=== PATIENT | female | born 1930 | race Caucasian/White ===

== ENCOUNTER 2016-09-01 08:44 | Emergency (ER) | payer MEDICARE, OTHER ==
[~2016-09-01] VITALS: Ht 157.5 cm; Wt 59.1 kg
[~2016-09-01 08:44] MED LIST: ASPI-628 PO; ATEN50TA PO
[2016-09-01 08:46] VITALS: BP 168/76; PULSE 84; RESP 18; O2SAT 98
--- NOTE | 2016-09-01 09:09 | ED.REPORT ---
HPI-Extremity Problem Upper Date of Service Sep 01, 2016 ED Provider: Walter Ferro MD 86 year old female with a history of right wrist fracture presents to the ER accompanied by her with right wrist pain status post mechanical ground level fall in her kitchen last night. She speculates that she landed on her outstretched hand. Pain is exacerbated with movement of her hand and forearm, and relieved by remaining still. She denies head or neck trauma, and any further injuries secondary to the fall. Nursing Notes Stated Complaint: RT ARM/WRIST PAIN Chief Complaint: Extremity Trauma Nursing Notes Reviewed: Yes Allergies: Coded Allergies: Penicillins (Verified Allergy, Severe, 12/16/15) Scheduled Aspirin (Aspir 81) 81 Mg Tablet.dr 81 MG PO DAILY Atenolol (Atenolol) 50 Mg Tablet 50 MG PO HS Scheduled PRN Hydrocodone-Acetaminophen 5-325 mg (Hydrocodone-Acetaminophen 5-325 mg) 1 Each Tablet 1 TABLET PO Q4H PRN PRN For Pain General Time Seen by MD: 09:08 Chief Complaint Wrist injury right Hx Obtained From: Patient Arrived By: Walk-in Onset Occurred: Yesterday Symptom Duration: Since onset Caused by: Accidental, Fall on ground Context: Occurred at: Home injury Location: : Wrist right Quality: Painful Severity: Current: Moderate Severity: Maximum: Severe Pertinent Negative: Pt denies other symptoms Exacerbated by: Range of motion, Movement Relieved by: Immobilization Similar Sx Previous: Yes Past Medical History Past Medical History Reports: Hypertension Past Surgical History Multiple eye surgeries Reports: Hysterectomy Smoking History Never Smoker Social History Alcohol Use: "Social" Drug Use: Denies drug use Other Social History: Ambulatory Status Independent Review of Systems Musculoskeletal: Reports: Extremity pain (Right Wrist), Denies: Back pain, Lumbar pain, Neck pain, Thoracic pain Neurologic: Denies: Headache, Problem walking, Syncope Complete sys rev & neg: except as marked. Physical Exam Initial Vital Signs Vital Signs (First) Date Time Temp Pulse Resp B/P Pulse Ox O2 Delivery O2 Flow Rate FiO2 09/01/16 08:46 36.6 84 18 168/76 98 09/01/16 11:13 Room Air Initial VS: Reviewed General/Constitutional: Well-developed, Well-nourished ENT: Mucous membranes moist, Conjunctiva normal, No scleral icterus Neck: Supple, Non-tender, Full range of motion Respiratory: Breath sounds normal, Clear to auscultation, No respiratory distress Cardiovascular: Regular rate & rhythm, Heart sounds normal, Intact distal pulses Lower Extremities: Vascular intact, Neuro intact, No swelling, No tenderness Skin: Warm, Dry, No cyanosis Neurologic: Alert, Oriented, Nonfocal Psychiatric: Mood/affect normal, Behavior normal, Normal thought content Wrist / Hand: No deformity, Neurologic intact, Vascular intact Right Wrist: Positive: Deformity present... (Palpable), Swelling present..., Tenderness present... Tenderness and swelling about the right distal radius. Able to flex and extend fingers on the right hand. Head / Eyes: Atraumatic (Scalp), Normocephalic Interpretation & Diagnostics X-Ray Interpretation Xray Interpretation: IMPRESSION: 1. Fractured distal radial metaphysis with dorsal angulation deformity. 2. Osteoarthritis first carpometacarpal joint. Dictated by: Jose Quigley M.D. on 09/01/2016 at 9:23 Approved by: Jose Quigley M.D. on 09/01/2016 at 9:25 X-Ray Ordered: Radius ulna right Interpretation / Wet Read by: Interpret - Radiologist Procedures Proced Mod Sedation/Analgesia Time: 10:41 Procedure Performed by: ED physician Sedation Time: 10 - 15 min Consent / Setup: Informed consent provided, Consent from patient, Time-out performed, Hand hygiene observed, Stand sterile technique, Patient sitting up Indication: Fracture reduction Preparation: hall monitor applied, Pulse oximeter applied, Constant attendance, IV access established, Eval last meal time, Supplemental oxygen, Procedure explained, Suction available, End tidal CO2 mon applied VS Prior to Procedure: All vital signs normal, O2 saturation normal, Blood pressure normal, Heart Rate normal, Respiratory rate normal Airway Exam: Normal facial anatomy Neuro Exam: Alert Sedation: Sedation: Propofol (40mg) ASA Classification: 1 normal healthy patient Response During Procedure: Handled secretions adeq, Maintained airway well, Oxygenation stable, Sedation appropriate, Vital signs stable Complications During/After: None Reversal: None required Mental Status After Procedure: Alert, Oriented X3, Response to verbal stim Post-Procedure: Alert prior to discharge, Ambulatory with assist Attestation: I performed procedure, I performed sedation Splint Application - Fx Mgt Splint Application- Fx Mgt: Reduced right distal radius fracture. Dorsally angulated. C-arm used. Good reduction achieved. Post-reduction films improved. Time: 10:41 Procedure Performed by: ED physician, Electronics Department Manager Precise Anatomic Location: Right Wrist Type of Immobilization: Sugar tong Definitive Fracture Care: Splint Post-Procedure / Complications: Cap refill normal, Post splint vascular nl, Post splint neuro nl, Condition improved, Tolerated procedure well, Patient stable Re-Eval/Medical Decision Med Decision/Clinical Course In summary, the patient is an 86-year-old female who presents with right wrist pain and swelling after a ground-level fall on outstretched right hand. Plain films demonstrate dorsally age-related wrist fracture. The patient is neurovascular intact distal to the injury. She has no other associated injuries or head trauma. I proceeded with procedural sedation and fracture reduction/splinting using C-arm as documented above. The patient tolerated the procedural sedation well and was maintained on continuous cardiac monitoring, end-tidal CO2 and pulse oximetry at all times. She had no apnea or desaturation. She recovered well from procedural sedation. All appropriate consent forms were obtained prior to the procedure. Good alignment of her fracture was achieved and splint was placed. Alignment was confirmed by radiography. She was provided with follow-up and return precautions and discharged in good condition. Neurovascular examination after splint patient was reassuring. Follow-up and return precautions were reviewed in detail and she was discharged in good condition. She will follow-up with orthopedic surgery this week or early next week. Source of Hx: Old records Re-Evaluation/Progress #1: Time of Eval: 09:14 Re-Evaluation/Progress Note: Discussed radiology wet read and updated patient on the plan of care. Re-Evaluation/Progress #2: Time of Eval: 10:14 Re-Evaluation/Progress Note: Discussed x-ray results and plan for conscious sedation and fracture reduction. Re-Evaluation/Progress #3: Time of Eval: 10:49 Re-Evaluation/Progress Note: Discussed plan to discharge. Patient is amenable to the plan. Return precautions given. All other questions addressed. Counseled Regarding: Diagnosis, Need for follow-up, When/why to return to ED Discharge & Departure Impression: Primary Impression: Fall from ground level Additional Impression: Distal radius fracture, right Encounter type: initial encounter Fracture type: closed Fracture morphology : Colles' Qualified Code: S52.531A - Colles' fracture of right radius, initial encounter for closed fracture Disposition: Home Discharge Condition All VS Reviewed: Yes Condition: Stable Patient Instructions: Wrist Fracture in Adults (DC) Additional Instructions: You were seen today because you have a right distal radius fracture. We reduced the fracture and placed a splint. You should remain in the splint/ sling at all times. Return to the emergency room immediately if you develop increasing pain, swelling, discoloration of your fingertips, numbness or tingling. You may take [place] as prescribed for pain. Please call later today or first thing tomorrow to arrange for a follow-up with the orthopedic surgeons. They may perform further management of her fracture and placed a cast. Narcotic Pain Medicine You have been prescribed a narcotic for pain relief. These drugs are usually combined with acetaminophen (Tylenol#3, Percocet, Darvocet, Anexsia, Vicodin) or aspirin (Empirin#3, Percodan, Synalogs-DC) for increased effect. Narcotics act on the central nervous system to reduce pain; they also impair mental alertness and physical abilities. We advise you not to drink alcohol, drive a car, or operate dangerous equipment when you are taking theses drugs. You can lessen stomach irritation from your medicine by taking it with meals or a full glass of water. Common side effects of narcotics are: Nausea and vomiting, heartburn, consitpation, dizziness, sleepiness, and mood changes. If you have bothersome side effects or symptoms of an allergic reaction (itching, hives, rash), stop taking your medicine and call your doctor or the emergency room right away. Please keep your narcotic medicine well out of the reach of children. Referrals: Roberto Tucker MD (PCP) Ayo Littlejohn MD Attestation Portions of this note were transcribed by Devon Eng. I, Dr. Ferro, personally performed the history, physical exam and medical decision-making; I reviewed and confirmed the accuracy of the information in the transcribed note. Signed by: Sal Hunt, 09/01/2016 and 10:49 copies to: Roberto Tucker MD; Ayo Littlejohn MD, Beck O MD Sep 01, 2016 09:09 DEVON ENG Sep 01, 2016 09:15
--- NOTE | 2016-09-01 09:26 | DRSVH ---
PROCEDURE: X-RAY RIGHT WRIST COMPLETE, MINIMUM THREE VIEWS ([id number]) INDICATIONS: fell/swelling TECHNIQUE: 4 views of the wrist were acquired. COMPARISON: None. FINDINGS: Bones: Fracture through the distal radial metaphysis shows mild dorsal angulation. The distal wall ap pears intact. Carpal bones appear intact, degenerative changes at the basilar joint of thumb noted. Scaphoid view: No scaphoid fracture seen. Soft tissues: No suspicious soft tissue calcifications. IMPRESSION: 1. Fractured distal radial metaphysis with dorsal angulation deformity. 2. Osteoarthritis first carpometacarpal joint. Dictated by: Jose Quigley M.D. on 09/01/2016 at 9:23 Approved by: Jose Quigley M.D. on 09/01/2016 at 9:25
[2016-09-01] MEDS ORDERED: Propofol 10 mg/mL 20 mL Inj IVPUSH ONE (09:40)
--- NOTE | 2016-09-01 10:20 | NUR ---
Assisted with sedation. RA 95, HR 71, ETCO2 36. No complications noted.
[2016-09-01] MEDS ORDERED: HYDR-4003 PO (10:46)
[2016-09-01 11:13] VITALS: BP 161/68; PULSE 78; RESP 17; O2SAT 96
--- NOTE | 2016-09-01 11:17 | DRSVH ---
PROCEDURE: X-RAY RIGHT WRIST, TWO VIEWS ([id number]) INDICATIONS: POST REDUCTION RIGHT WRIST TECHNIQUE: 2 views of the wrist were acquired. COMPARISON: None. FINDINGS: Bones: AP and lateral views of the wrist obtained post closed reduction shows correction of the dorsa l angulation deformity and holiness of length of the radius. Fracture line through the distal radi al metaphysis is reidentified. Scaphoid view: Not required Soft tissues: No suspicious soft tissue calcifications. IMPRESSION: Improved alignment distal radial metaphyseal fracture post closed reduction. Dictated by: Jose Quigley M.D. on 09/01/2016 at 11:14 Approved by: Jose Quigley M.D. on 09/01/2016 at 11:16
[2016-09-04] MEDS ORDERED: NAPR220C11 PO (13:14)
== END 2016-09-01 10:47 | disposition home or self-care (01) ==
LOC: SED 08:44
DX: S52.531A Colles' fracture of right radius, initial encounter for closed fracture (principal); W18.30XA Fall on same level, unspecified, initial encounter; Y93.89 Activity, other specified; Y92.000 Kitchen of unspecified non-institutional (private) residence as the place of occurrence of the external cause; Y99.8 Other external cause status; I10 Essential (primary) hypertension; Z79.82 Long term (current) use of aspirin; Z88.0 Allergy status to penicillin

== ENCOUNTER 2016-09-07 12:19 | Day surgery (SDC) | payer MEDICARE, OTHER ==
[2016-09-07] VITALS (11 sets, daily range): BP systolic 139–177; BP diastolic 60–82; PULSE 66–87; RESP 14–18; O2SAT 91–99
[~2016-09-07] VITALS: Ht 157.5 cm; Wt 60.6 kg
--- NOTE | 2016-09-07 06:39 | PCM.HPANE ---
Patient Data Surgeon Admitting Provider: Attending Provider:Didier Garcia DO Primary Care Physician:Roberto Tucker MD Other Provider:Jarrett Whitley Anesthesia Reason for Visit Right Intra-Articular Distal Radius Fracture Ht/WT & BMI Height (Feet): 5 Height (Inches): 2 Weight (Kilograms): 62.5 Body Mass Index 25.00 Allergies Coded Allergies: Penicillins (Verified Allergy, Severe, HIVES, 09/07/16) atorvastatin (Verified Adverse Reaction, Severe, MYALGIAS, 09/07/16) fenofibrate (Verified Adverse Reaction, Severe, GI PROBLEMS, 09/07/16) Past Anesthesia History Anesthesia History: Denies:: Anesthesia Reactions, Malignant Hyperthermia Diabetes History Hx Diabetes?: No (HX OF IFG) MRSA MRSA: No Medications Blood Thinner: Aspirin Home Meds Incl Beta Lorenzo: Yes (ATENOLOL) Reported Medications Aspirin 81 Mg [id number] Mg PO DAILY Ref 0 09/07/16 Naproxen Sodium (Aleve)220 Mg [id number] Mg PO DAILY PRN PRN 09/04/16 Atenolol 50 Mg [id number] Mg PO HS #30 TABLET Ref 0 11/30/14 Discontinued Reported Medications Aspirin (Aspir 81)81 Mg Tablet.dr81 Mg PO DAILY Ref 0 11/30/14 Discontinued Scripts Hydrocodone-Acetaminophen 5-325 mg 1 Each Tablet1 Tablet PO Q4H PRN For Pain # 20 TABLET Prov:Walter Ferro MD 09/01/16 History History of ENT Problems?: Yes HEENT History: Positive for:: Cataracts (S/P B/L EXTRACTIONS) Denies:: Glaucoma (S/P MULT CORRECTIVE EYE SURGERIES-CHRONIC CONJUGATE GAZE) Hx of Heart Problems?: Yes Cardiovascular History: Positive for:: Heart Murmur (GR I/ JESSEE HEARD @ [facility] 01/2016 EF 65-70%) Hypertension (HYPERLIPIDEMIA) Valvular 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, MOD AR,AORTIC SCLEROSIS) Denies:: Cardiac Surgery Chest Pain Congestive Heart Failure Edema Irregular Heartbeat (PT REPORTS PALPITATIONS 01/2016-[facility] WNL) Pacemaker Thrombophlebitis Hx of Respiratory Problem?: No Respiratory History: Denies:: Use of C-PAP Machine Hx Neurologic Problems?: Yes Neurological History: Positive for:: Dizziness (LIGHTHEADEDNESS,DIZZINESS W/ FALLS) Headaches Hx of GI Problems?: Yes Gastrointestinal History: Positive for:: Rectal Bleeding (HX HEMORRHOIDS) Denies:: Diverticulitis (DIVERTICULOSIS) Hx of Problems?: Yes Genitourinary History: Positive for:: Urinary Tract Infection (long time ago) Denies:: HX of Hemodialysis Kidney Stones HX of Peritoneal Dialysis: No Female Hx: Positive for:: Problems with Breasts? (FIBROCYSTIC BREAST DISEASE S/P BREAST BX-NEG.) Denies:: Currently Skin History: Positive for:: History Skin Disorders? (S/P EXC BASAL CELL CA EAR AREA RT) Denies:: Pressure Ulcers Hx Musculoskeletal Problems?: Yes Musculoskeletal History: Positive for:: Back Injury (gets occasional back ache ) Musculoskeletal Trauma (RT DISTAL RADIUS FX (SUGAR TONG SPLINT)=CURRENT PROBLEM) Denies:: Joint Replacement Hx of Psycho/Social Problems?: No Psycho Social History: Denies:: Suicide Attempt Hx Surgeries?: Yes (HYST,MULT EYE CORRECTIVE SURGERIES,B/L CATARACTS,BREAST BX) Hx Any Other Health Problems?: Yes Other History: Positive for:: Cancer (BASAL CELL CA RT EAR AREA) Hospitalization (for previous surgeries) Denies:: Endocrine Disease Thyroid Disease History Blood Transfusions: Denies:: Blood Transfusions Hx Diabetes: No (HX OF IFG) Hx Alcohol Use: Yes (occasional)Hx Substance Use: No Smoking Status: Never Smoker Have You Smoked inLast 12 mo: No Stop/Bang S-Snoring: Do You Snore Loudly: No T-Tired: feel tired, fatigued: Yes O-Obsered: Observed not breath: No P-Blood Pressure: treated: Yes B- Body Mass Index > 35 kg/m2: No A- Age over 50: Yes N- Neck Large Circumference: No G- Gender Male: No RUTHY Total Score: 3 RUTHY Risk Assessment: Low Risk, <3 Yes Risk Assessment Category Category 1A: Patient has history of documented sleep apnea, and HAS NOT received any narcotic, sedative or anesthesia administration during this stay. Category 1B: Patient has history of documented sleep apnea, and HAS received any narcotic , sedative or anesthesia administration during this stay Category 2: Patient has SUSPECTED Obstructive Sleep Apnea, and HAS received any narcotic , sedative or anesthesia administration during this stay. Category 3: Patient has SUSPECTED Obstructive Sleep Apnea and HAS NOT received narcotic, sedative or anesthesia administration during this stay. Category 4: Outpatient in Procedural Areas with known sleep apnea or who screen positive for High Risk via the STOP/BANG questionnaire. Exam Exam General Appearance: Alert, Oriented X3, Cooperative, No Acute Distress HEENT/AIRWAY: MP 2 Lungs: Clear to Auscultation, Normal Air Movement Heart: Exam Unremarkable, Regular Rate/Rhythm, No Murmurs/Rubs/Gallops Plan Impression Patient chart reviewed, patient interviewed and anesthestic plan with risks, benefits, and alternatives discussed, and informed consent obtained. ASA Physical Status: ASA2 Mod Systemic Disease Anesthetic Plan: GA, Regional Block Bene/Risks/Altern/Consents: Yes HP Complete Prior to Induction: Yes Other Axillary block as well Abelino Nicole MD Sep 07, 2016 06:39
[~2016-09-07 12:19] MED LIST changes: +Clindamycin 600 mg/50 mL D5W IV ONE; +HYDR-4003 PO; +Lactated Ringer's 1,000 ML IV ONE; +NAPR220C11 PO
[2016-09-07] MEDS ORDERED: Ondansetron 2 mg/mL 2 mL Inj ONE (12:20)
[2016-09-07] MEDS ORDERED: Dexamethasone 4 mg/mL Inj ONE (12:20)
[2016-09-07] MEDS ORDERED: fentaNYL-PF 50 mCg/mL 2 mL Inj ONE (12:20)
[2016-09-07] MEDS ORDERED: Propofol 10,000 mCg/mL 20 mL Inj ONE (12:20)
[2016-09-07] MEDS ORDERED: ASPI-973 PO (12:44)
[2016-09-07] MEDS ORDERED: Clindamycin 600 mg/50 mL D5W Premix IV ONE (12:48)
[2016-09-07] MEDS ORDERED: HYDROcodone-APAP 7.5-325 mg Tablet PO PRN (13:35)
[2016-09-07] MEDS ORDERED: Lactated Ringer's 1,000 ML IV SCH (14:53)
[2016-09-07] MEDS ORDERED: Lactated Ringer's 500 ML IV PRN (14:53)
[2016-09-07] MEDS ORDERED: fentaNYL-PF 50 mCg/mL 2 mL Inj IVPUSH PRN (14:55)
[2016-09-07] MEDS ORDERED: Phenylephrine 10,000 mCg/mL Inj IVPUSH PRN (14:55)
[2016-09-07] MEDS ORDERED: Atropine 0.4 mg/mL Inj IVPUSH PRN (14:55)
[2016-09-07] MEDS ORDERED: HYDROmorphone 1 mg/mL Inj IVPUSH PRN (14:55)
[2016-09-07] MEDS ORDERED: EPHEDrine Sulfate 50 mg/mL Inj IVPUSH PRN (14:55)
[2016-09-07] MEDS ORDERED: Labetalol 5 mg/mL 4 mL Inj IV PRN (14:55)
[2016-09-07] MEDS ORDERED: Dexamethasone 4 mg/mL Inj IVPUSH PRN (14:55)
[2016-09-07] MEDS ORDERED: Ondansetron 2 mg/mL 2 mL Inj IVPUSH PRN (14:55)
[2016-09-07] MEDS ORDERED: hydrALAZINE 20 mg/mL Inj IVPUSH PRN (14:55)
[2016-09-07] MEDS ORDERED: MetoCLOpramide 5 mg/mL 2 mL Inj IVPUSH PRN (14:55)
--- NOTE | 2016-09-07 15:42 | PCM.ANEP1 ---
Post Anesthesia Phase 1 PACU Phase 1 Assessment Vital Signs Vital Signs Date Time Temp Pulse Resp B/P Pulse Ox O2 Delivery O2 Flow Rate FiO2 09/07/16 15:36 36.6 86 14 154/82 99 Simple Mask 8 09/07/16 12:41 35.6 66 16 177/69 95 Room Air Anesthetic Administered: GA Level of Alertness: Awake, talking SANCHEZ's with Equal Strength: Yes Pain: No Nausea or Vomiting: No Lungs: Clear to Auscultation, Normal Air Movement Abelino Nicole MD Sep 07, 2016 15:42
--- NOTE | 2016-09-07 17:36 | PCM.ANEP2 ---
Post Anesthesia Evaluation ASA/CMS Post Anesthesia VS in Patient's Normal Range?: Yes Resp Stable; Airway Patent?: Yes CV Function & Hydration Stable: Yes Mental Status Recovered?: Yes Pain control Satisfactory?: Yes N/V Control Satisfactory?: Yes Abelino Nicole MD Sep 07, 2016 17:36
--- NOTE | 2016-09-07 23:53 | OP ---
[address] [address] OPERATIVE REPORT PATIENT: EDINSON FERMIN : 1930 MR#: [id number] ADMIT: 09/07/2016 JOB ID: [id number] DATE OF SURGERY: 09/07/2016 PREOPERATIVE DIAGNOSIS(ES): Right two-part intra-articular distal radius fracture. POSTOPERATIVE DIAGNOSIS(ES): Right two-part intra-articular distal radius fracture. PROCEDURE: Open reduction, internal fixation right two-part intra-articular distal radius fracture. SURGEON: Didier Garcia D.O. ANESTHESIA: General. HISTORY: The patient is a pleasant 86-year-old female that fell at home landing onto an outstretched right hand. She sustained a two-part intra-articular distal radius fracture that was closed reduced in the emergency department. It was closed anatomically but by the time she came back and saw me the fracture had drifted dorsally with dorsal angulation and translation. I discussed with patient, as well as her , the risks, benefits, alternatives and indications to proceed with the open reduction, internal fixation right distal radius fracture. They understood the risks include, but are not limited to, neurovascular injury, tendon injury, infection, failure of fixation, stiffness or persistent pain, of which may require further intervention. The patient had all questions answered. Consent was signed and placed in the chart. PROCEDURE IN DETAIL: The patient was brought to the operative suite and placed supine on the operating table. Surgical time-out performed. Everyone in the room was in agreement. After appropriate anesthesia was obtained, a right upper arm tourniquet was applied. The right upper extremity prepped and draped in sterile fashion. Right upper extremity then exsanguinated and tourniquet inflated to 250 mmHg. A standard FCR approach was utilized. The FCR tendon was retracted ulnarly revealing the sub sheath, which next was incised in-line with the overlying tendon. The flexor pollicis longus next was identified and retracted ulnarly. This exposed the pronator quadratus which was released from its most distal and radial margin. The fracture site was identified and manual reduction was then performed. The reduction was verified under fluoroscopy with AP and lateral projections. Next, a narrow Arthrex volar distal radius plate was applied to the volar cortex of the distal radius and held in place provisionally with K-wires. The position of the plate was verified under fluoroscopy. Next, a cortical nonlocking screw was placed within the oblong hole of the shaft to pull the plate to the volar cortex of the distal radius. This was followed by application of also an additional nonlocking screw distally to pull the distal aspect of the radius to the plate. The placement of the plate and the reduction again was verified under fluoroscopy. Completion of fixation was performed utilizing a combination of locking screws distally and nonlocking and locking screws proximally as the patient had significant poor bone quality, even within the shaft of the metaphysis. Final radiographic projections were obtained. Excellent fixation was achieved. Appropriate length of all screws were identified. The distal screws were free from the dorsal cortex and also free from any articular surface. Copious irrigation was performed, followed by closure of the subcutaneous tissues with 4-0 Vicryl and a running 4-0 nylon. The patient was then placed in a well-padded, well-molded volar resting splint. ESTIMATED BLOOD LOSS: Less than 5 cc. COMPLICATIONS: None. DISPOSITION: The patient tolerated the procedure well. Anesthesia was reversed. The patient was transferred back to recovery room. IMPLANTS: An Arthrex right narrow volar distal radius plate. POSTOPERATIVE PLAN: The patient will see occupational therapy this week to be transitioned into a removable wrist brace. She is to keep that on at all times except for when performing gentle range of motion of the wrist with therapy. She has limited to no lifting, pushing or pulling with the right hand or wrist until a minimum of six weeks postop. SHANEKA
== END 2016-09-07 23:59 | disposition home or self-care (01) ==
LOC: SAS 12:19
PROVIDERS: ATTEND Orthopaedic Surgery
DX: S52.571A Other intraarticular fracture of lower end of right radius, initial encounter for closed fracture (principal); I10 Essential (primary) hypertension; R42 Dizziness and giddiness; W19.XXXA Unspecified fall, initial encounter; Y92.018 Other place in single-family (private) house as the place of occurrence of the external cause; Z79.82 Long term (current) use of aspirin
CPT/HCPCS: 25608; C1713; J1100; J2250; J2405; J3010; J7120